=== PATIENT | male | born 1975 | race Native Hawaiian/Other Pacific Islander ===

== ENCOUNTER 2016-12-28 11:43 | Day surgery (SDC) | payer OTHER | END 2016-12-28 14:45 | disposition home or self-care (01) | LOC: OR 11:43 | PROC: 08RJ3JZ Replacement of Right Lens with Synthetic Substitute, Percutaneous Approach (ICD-10-PCS; principal; 2016-12-28) | DX: H25.21 Age-related cataract, morgagnian type, right eye (principal) | CPT/HCPCS: 66984; V2632 ==

== ENCOUNTER 2017-02-01 09:19 | Day surgery (SDC) | payer OTHER | END 2017-02-01 11:25 | disposition home or self-care (01) | LOC: OR 09:19 | PROC: 08RK3JZ Replacement of Left Lens with Synthetic Substitute, Percutaneous Approach (ICD-10-PCS; principal; 2017-02-01) | DX: H25.22 Age-related cataract, morgagnian type, left eye (principal) | CPT/HCPCS: 66984; V2632 ==